=== PATIENT | female | born 1975 | race Caucasian/White ===

== ENCOUNTER 2020-04-10 10:45 | Outpatient (CLI) | payer MEDICARE, MEDICAID ==
--- NOTE | 2020-04-10 15:05 | NM ---
NM Bone Scan Three Phase History: Pain Comparison: Knee radiograph December 2017 Findings: Blood flow, blood pool, and delayed imaging of the knees along with delayed imaging of the whole body was performed after the intravenous administration 20 mCi technetium 99m MDP. No abnormal blood flow or blood pool around either knee. No abnormal uptake of anterior delayed seque nce. The kidneys and urinary bladder are normal. Impression: Normal exam. No evidence for loosening.
== END 2020-04-10 10:46 | disposition home or self-care (01) ==
LOC: NM 10:45
PROVIDERS: ATTEND Orthopaedic Surgery
DX: T84.033A Mechanical loosening of internal left knee prosthetic joint, initial encounter (principal)
CPT/HCPCS: 78315; A9503